=== PATIENT | male | born 1960 | race Caucasian/White ===

== ENCOUNTER 2022-03-14 07:32 | Outpatient (CLI) | payer BC, SELFPAY ==
--- NOTE | ~2022-03-14 | US_ITS ---
EXAMINATION: US scrotum doppler DATE: 03/14/2022 08:45 INDICATION: Right testicular pain TECHNIQUE: Testicular sonogram utilizing grayscale and Doppler COMPARISON: None. FINDINGS: The right testis measures 4.7 x 2.2 x 2.5 cm. The left testis measures 4.0 x 2.8 x 2.0 cm. Symmetric normal grayscale appearance to both testes. There is normal vascular flow to both testes. The right e pididymis is normal with normal vascular flow. 3-4 mm anechoic left epididymal cyst. The left epididy mis is otherwise normal with normal vascular flow. There is no varicocele or hydrocele. IMPRESSION: 1. 3-4 mm left epididymal cyst. Otherwise normal scrotal ultrasound. Reviewed, dictated and finalized at location A.
== END 2022-03-14 07:33 | disposition home or self-care (01) ==
PROVIDERS: PCP Family Medicine; Visit Provider Urology
DX: N50.811 Right testicular pain (principal); N50.3 Cyst of epididymis
CPT/HCPCS: 76870; 93976

== ENCOUNTER 2022-03-24 00:58 | Day surgery (SDC) | payer BC, SELFPAY ==
[2022-03-14 14:43] VITALS: BMI 23.9
--- NOTE | 2022-03-14 14:56 | PC.NURSE ---
Per patient, Ok to get medical hx from due to his work schedule. also verbally verified that mag citrate will not be taken as part of the prep.
[2022-03-24 06:28] VITALS: BP 133/66; PULSE 66; RESP 18; TEMP 36.5; O2SAT 97
[2022-03-24] MEDS: LACTATED RINGERS 1,000 ML 150 ML IV CONT (06:37)
--- NOTE | 2022-03-24 07:22 | WPDANESEPPF ---
Anes - Initial Pre Proc Eval Procedure: Operation Date: 03/24/22 07:30 Proposed Procedures p Screening Colonoscopy - Conor Cardenas MD Date/Time: 03/24/22 07:22 Surgeon: Conor Cardenas MD Pre Op Diagnosis: neoplasm screening Patient Data Age: 61 Gender: M Height: 1.75 m Weight: 70.4 kg Last Vital Signs Temp 97.7 F 03/24/22 06:28 Pulse 66 03/24/22 06:28 Resp 18 03/24/22 06:28 BP 133/66 03/24/22 06:28 Pulse Ox 97 03/24/22 06:28 O2 Del Method Room Air 03/24/22 06:28 Allergies Allergy/AdvReac Type Severity Reaction Status Date / Time No Known Allergies Allergy Verified 03/24/22 06:26 Home Medications Medication Instructions Recorded Confirmed Type atorvastatin 20 mg tablet 20 mg PO DAILY #90 tabs 04/22/21 03/14/22 Rx lisinopril 20 mg tablet 20 mg PO DAILY #90 tabs 04/22/21 03/14/22 Rx omeprazole 20 mg tablet,delayed 20 mg PO DAILY #90 tabs 04/22/21 03/14/22 Rx release sildenafil 100 mg tablet (Viagra) 100 mg PO DAILY PRN sexual 02/07/22 03/14/22 Rx activity #10 tabs valacyclovir 500 mg tablet 500 mg PO DAILY #90 tabs 02/22/22 03/14/22 Rx Patient hx anesthesia problems: none Family hx anesthesia problems: none Results Review: All pre-operative results and documents have been reviewed as part of the pre-operative evaluation. [facility] Past Medical History Medical History Benign prostatic hyperplasia Erectile dysfunction Essential hypertension Gastroesophageal reflux disease Genital HSV Injury of triceps Mixed hyperlipidemia Total bilirubin, elevated Surgical History Surgical History History of bilateral knee replacement Hx of tonsillectomy Family History Family History (Updated 02/07/22 @ 15:48 by Lisa Manzo CMA) Sibling Diabetes mellitus Father Hypertension Malignant neoplasm of prostate Grandparent Acute myocardial infarction Grandparent Cerebrovascular accident Social History Social History (Updated 02/07/22 @ 15:48 by Lisa Manzo [facility] Smoking status: Never smoker Alcohol intake: never Substance use: never Substance use type: does not use Living arrangements: alone Anes - Eval Final PreProcedure Day of Procedure 03/24/22 07:22 Patient weight: normal Heart: regular rate and rhythm Lungs: clear to auscultation Airway: Mallampati scale class II Neurological: alert and oriented Last oral intake: >/= 8 hours ASA classification: II Emergent: no Anesthetic plan: proceed Anesthesia type and monitoring: general GIVS and standard monitoring Results Review: All pre-operative results and documents have been reviewed as part of the pre-operative evaluation. Informed Consent: The patient's anesthetic plan and its attendant risks and benefits were discussed with the patient/family/POA. Questions were solicited and answers provided to the satisfaction of the patient/family/POA.
--- NOTE | 2022-03-24 07:23 | PM.IMHP ---
H&P: HPI History of Present Illness Date/Time: 03/24/22 07:23 Chief Complaint: Neoplasia screening. Narrative: This is a 61-year-old white male patient presents for screening colonoscopy. Patient reports his current weight appetite and bowel movements are normal. Patient denies abdominal pain. He has had no bleeding. Family history is noncontributory. Has been 12 years since last colonoscopy. Patient presents today for screening colonoscopy. Review of Systems Review of Systems: Review of systems noncontributory. [facility] Past Medical History Medical History Benign prostatic hyperplasia Erectile dysfunction Essential hypertension Gastroesophageal reflux disease Genital HSV Injury of triceps Mixed hyperlipidemia Total bilirubin, elevated Surgical History Surgical History History of bilateral knee replacement Hx of tonsillectomy Family History Family History (Updated 02/07/22 @ 15:48 by Lisa Manzo CMA) Sibling Diabetes mellitus Father Hypertension Malignant neoplasm of prostate Grandparent Acute myocardial infarction Grandparent Cerebrovascular accident Social History Social History (Updated 02/07/22 @ 15:48 by Lisa Manzo CMA) Smoking status: Never smoker Alcohol intake: never Substance use: never Substance use type: does not use Living arrangements: alone Meds Home Medications and Allergies Home Medications Medication Instructions Recorded Confirmed Type atorvastatin 20 mg tablet 20 mg PO DAILY #90 tabs 04/22/21 03/14/22 Rx lisinopril 20 mg tablet 20 mg PO DAILY #90 tabs 04/22/21 03/14/22 Rx omeprazole 20 mg tablet,delayed 20 mg PO DAILY #90 tabs 04/22/21 03/14/22 Rx release sildenafil 100 mg tablet (Viagra) 100 mg PO DAILY PRN sexual 02/07/22 03/14/22 Rx activity #10 tabs valacyclovir 500 mg tablet 500 mg PO DAILY #90 tabs 02/22/22 03/14/22 Rx Allergies Allergy/AdvReac Type Severity Reaction Status Date / Time No Known Allergies Allergy Verified 03/24/22 06:26 Vital Signs Vital Signs - 24 hr 03/24/22 06:28 Temperature 97.7 F Pulse Rate 66 Respiratory Rate 18 Blood Pressure 133/66 Pulse Oximetry 97 Oxygen Delivery Room Air Exam Narrative: Physical exam reveals patient be alert. Vital signs stable. HEENT exam is unremarkable. Patient is anicteric. Lungs are clear to auscultation and percussion. Heart is without murmur or extra sounds. Abdominal exam bowel sounds are present soft nontender with no organomegaly. Digital external rectal exam is normal. Assessment and Plan Assessment and plan (1) Encounter for screening colonoscopy: Code(s): Z12.11 - Encounter for screening for malignant neoplasm of colon Status: Acute Assessment and Plan: Patient presents today for screening colonoscopy. He appears to be at average risk for colon polyps. Further recommendations may be given after endoscopy.
[2022-03-24] MEDS: SIMETHICONE ORAL SUSPENSION 20 MG/0.3 ML 30 ML BOTTLE 0.6 ML IRRIGATION (07:35)
[2022-03-24 07:49] VITALS: BP 85/48; PULSE 60; RESP 17; O2SAT 98
[2022-03-24 07:59] VITALS: BP 123/71; PULSE 65; RESP 23; O2SAT 99
[2022-03-24 08:09] VITALS: BP 116/68; PULSE 55; RESP 13; O2SAT 98
== END 2022-03-24 08:17 | disposition home or self-care (01) ==
PROVIDERS: PCP Family Medicine; Visit Provider Internal Medicine Gastroenterology
PROC: 0DJD8ZZ Inspection of Lower Intestinal Tract, Via Natural or Artificial Opening Endoscopic (ICD-10-PCS; CPT 45378; principal; 2022-03-24 07:30)
DX: Z12.11 Encounter for screening for malignant neoplasm of colon (principal); K62.1 Rectal polyp; I10 Essential (primary) hypertension; E78.2 Mixed hyperlipidemia; N40.0 Benign prostatic hyperplasia without lower urinary tract symptoms; B00.9 Herpesviral infection, unspecified; K21.9 Gastro-esophageal reflux disease without esophagitis
CPT/HCPCS: 45385; 88305; J2704; J7120

== ENCOUNTER 2024-04-10 12:51 | Outpatient (CLI) | payer BC, SELFPAY ==
--- NOTE | ~2024-04-10 | US_ITS ---
EXAMINATION: US renal BI DATE: 04/10/2024 13:30 INDICATION: Abnormal result of kidney function tests TECHNIQUE: Multiple ultrasound grayscale images of the kidneys were obtained. COMPARISON: None. FINDINGS: The right kidney measures 9.4 x 4.7 x 4.9 cm. The left kidney measures 11.2 x 5.8 x 5.0 cm. The kidne ys demonstrate normal echogenicity. 2.2 similar anechoic exophytic cyst at the lower pole of the left kidney. There is no hydronephrosis in either kidney. No stones identified. The bladder is normal wi th bilateral ureteral jets visualized on color Doppler. IMPRESSION: 1. 2.2 cm left renal cyst. Otherwise normal kidneys with no hydronephrosis. Reviewed, dictated and finalized at location B.
== END 2024-04-10 12:52 | disposition home or self-care (01) ==
PROVIDERS: PCP Family Medicine; Visit Provider Student in an Organized Health Care Education/Training Program
DX: R94.4 Abnormal results of kidney function studies (principal); N28.1 Cyst of kidney, acquired
CPT/HCPCS: 76775

== ENCOUNTER 2024-08-20 16:21 | Outpatient (CLI) | payer BC, SELFPAY ==
--- OUTSIDE RECORDS SUMMARY | 2024-08-20 16:23 | XMS_ITS | Continuity of Care Document ---
Author Organization [facility] Address [id number] [place] [address] [address] [place] [address] Phone Care Team Providers Care Applications Engineer Name Role Phone Ailyn Ashby Unavailable Unavailable Advance Directives Directive Yes / No Effective Date File Name No Information Encounters Encounter Description Practice Location Reason(s) For Visit Diagnoses Date Provider Providers Copied on Encounter [facility], [address], [place], [place], [id number], [place] tel:[phone] [facility] No Information Nov-0 2-200 0 Symone Robertson. [address] , [address], [place], [address], [place]. tel:[phone] Family History Family Member Type Diagnosis Age At Onset No Information Payers Payer name Insurance type Covered green party ID Authoriza tion(s) No Information Social History Type Description Quantity Date Captured Comments Sex Male Smoking Status No Information Chief Complaint And Reason For Visit No Information Reason For Referral Reason For Referral No Information History Of Present Illness Encounter Date Complaint History Of Prese nt Illness No Information Functional Status Date Functional Assessmen t No Information Instructions Date Instruction Additional Infor mation No Information Assessments Type Assessment Date No Information Patient Care Teams Name Effective Dates (start - stop) Status Members No Information
[2024-08-20 16:38] LABS: Hematocrit 40.2 % (42.0-52.0); Hemoglobin 13.3 g/dL (14.0-18.0); Mean Corpuscular HGB Conc 33.1 g/dl (32-36); Mean Corpuscular Hemoglobin 29.9 pg (26-34); Mean Corpuscular Volume 90.3 fl (80-100); Platelet Count Result 321 k/mm3 (150-375); Red Blood Count 4.45 M/mm3 (4.6-6.20); Red Cell Distribution Width 12.2 % (11.5-14.5); White Blood Count 6.7 K/mm3 (4.5-10.0)
[2024-08-20 16:57] LABS: Alanine Aminotransferase 38 U/L (6-50); Albumin Level 4.2 g/dL (3.5-5.1); Alkaline Phosphatase 54 U/L (38-126); Anion Gap 6 mmol/L (4-12); Aspartate Amino Transferase 31 U/L (17-59); Bilirubin,Total 0.5 mg/dL (0.2-1.3); Blood Urea Nitrogen 28 mg/dL (9-20); Calcium 9.2 mg/dL (8.4-10.2); Carbon Dioxide 31 mmol/L (22-30); Chloride 102 mmol/L (98-107); Estimated Glomerular Filt Rate > 60; Glucose 102 mg/dL (65-110); Potassium 4.1 mmol/L (3.4-5.0); Sodium 139 mmol/L (137-145)
== END 2024-08-20 16:22 | disposition home or self-care (01) ==
LOC: ANHLAB 16:22
PROVIDERS: PCP Family Medicine; Visit Provider Family Medicine
DX: Z01.818 Encounter for other preprocedural examination (principal); Z86.2 Personal history of diseases of the blood and blood-forming organs and certain disorders involving the immune mechanism; I10 Essential (primary) hypertension
CPT/HCPCS: 36415; 80053; 85027

== ENCOUNTER 2024-08-21 07:01 | Outpatient (CLI) | payer BC, SELFPAY ==
--- OUTSIDE RECORDS SUMMARY | 2024-08-21 07:04 | XMS_ITS | Continuity of Care Document ---
Author Organization [facility] Address [address] [place] [address] [address] [place] [address] Phone Care Team Providers Care Radiation Physicist Name Role Phone Ailyn Ashby Unavailable Unavailable Advance Directives Directive Yes / No Effective Date File Name No Information Encounters Encounter Description Practice Location Reason(s) For Visit Diagnoses Date Provider Providers Copied on Encounter [facility], [address], [place], [place], [id number], [place] tel:[phone] [facility] No Information Nov-0 2-200 0 Symone Robertson. [address] , [address], [place], [address], [place]. tel:[phone] Family History Family Member Type Diagnosis Age At Onset No Information Payers Payer name Insurance type Covered constitution party ID Authoriza tion(s) No Information Social [...]
--- NOTE | 2024-08-21 07:32 | ECG_ITS ---
Test Date: 2024-08-21 07:48:23 Measurements Intervals [place] Rate: 55 P: 60 SC: 182 QRS: 8 QRSD: 110 T: 48 QT: 427 QTc: 411 Interpretive Statements SINUS BRADYCARDIA SEPTAL MYOCARDIAL INFARCTION , PROBABLY OLD [40+ ms Q WAVE IN V1/V2] No previous ECG available for comparison Electronically Signed On 08-21-2024 16:03:17 METAL NUMERICAL CONTROL PROGRAMMER by Khari Jones M.D.
== END 2024-08-21 07:02 | disposition home or self-care (01) ==
PROVIDERS: PCP Family Medicine; Visit Provider Family Medicine
DX: R94.31 Abnormal electrocardiogram [ECG] [EKG] (principal); I10 Essential (primary) hypertension
CPT/HCPCS: 93005

== ENCOUNTER 2024-08-28 01:02 | Day surgery (SDC) | payer BC, SELFPAY ==
[2024-08-21 14:23] VITALS: BMI 23.1
--- NOTE | 2024-08-21 14:38 | PC.NURSE ---
Report to the Outpatient Waiting Room, entrance under the green pavilion located off [facility], at time ___8:00AM____ on date __08/28/24 . Planned Procedure Time: __10:00AM____.? Time changes happen often and if your time is changed the preop area will call you the afternoon before. - You and your visitor will be asked to self-screen and do not enter if you have any COVID symptoms. Please call surgeon if you need to reschedule. - A mask is optional within the hospital at this time. Patients may have clear liquids (water, carbonated beverages, clear teas, apple juice) until 3 hours prior to surgery (7:00AM) with a maximum of 20 ounces. - No food from midnight until time of surgery and no smoking. This includes no chewing gum, candy or mints. Take only the following medications with a SIP of water on the morning of surgery: EYE DROPS ONLY DO NOT STOP ANY OF YOUR OTHER PRESCRIPTION MEDICATIONS PRIOR TO SURGERY EXCEPT THE FOLLOWING Medications to discontinue per physician HOLD ALL VITAMINS/SUPPLEMENTS 3 DAYS PRE-OP PER ANESTHESIA- LAST DOSE 08/24/24. HOLD DICLOFENAC PER DR COHEN. Please no make-up, nail taiwanese, hairspray, perfume, deodorant, or body powder the day of surgery.? No jewelry (including any body piercings) or valuables the day of surgery, leave them at home.? Please take a shower or bath the night before, or the morning of, surgery with an antibacterial soap.? Wear comfortable, loose fitting clothing.? Children are encouraged to wear pajamas. - Jewelry must be removed prior to entering the operating room.? Rings and piercings that are not removed may be cut off. - The hospital will not accept responsibility for valuables.? - Please leave all valuables, including medications, at home the day of surgery. If you are going home after surgery, a licensed cdl truck driver must drive you home.? - NO public transportation without another adult if you receive anesthesia. - We recommend that an adult stay with you for 24 hours following discharge. - We also recommend that you do not drive, make important decision, drink alcoholic beverages, or take any drugs that were not prescribed by your health care provider for at least 24 hours after your discharge time. For Pediatric surgeries, we recommend two adults accompany the child home. Hold all vitamins and supplements for 3 days per anesthesiologist. Follow any additional instructions given to you from your surgeon. Telephone instructions given to ____PATIENT and asked if any additional questions and then verbalized understanding. Patient advised to call surgeon office or pre surgery nurse liaison [phone] if any additional questions.
--- NOTE | 2024-08-27 08:39 | PM.IMHP ---
H&P: HPI History of Present Illness Date/Time: 08/27/24 08:39 Chief Complaint: Patient presents with a triceps tear on the left. He has previously torn his right 1. The tendon is retracted several centimeters. This occurred about a month ago. He would like to consider surgical intervention attempted repair. Review of Systems Musculoskeletal: Musculoskeletal: Reports arthralgias, Reports joint swelling and Reports stiffness [facility] Past Medical History Medical History Triceps tendon rupture Total bilirubin, elevated Genital HSV Injury of triceps Benign prostatic hyperplasia Erectile dysfunction Gastroesophageal reflux disease Mixed hyperlipidemia Essential hypertension Surgical History Surgical History Hx of tonsillectomy History of bilateral knee replacement Family History Family History Sibling Diabetes mellitus Father Hypertension Malignant neoplasm of prostate Grandparent Acute myocardial infarction Cerebrovascular accident Mother No problems noted. Social History Social History Smoking status: Never smoker Second hand tobacco smoke exposure: No Alcohol intake: never Substance use: never Substance use type: does not use Do You Feel Safe in your Home?: Yes Lack of Transportation: No Lack of Food: Never True Current Housing: I Have Housing Concerned About Future Housing: No Difficulty Paying Gas/Electric Bills: No Difficulty Paying for Meds: No Currently Unemployed: No Education: Trade/Vocational Certificate Difficulty w/ Childcare or Family Care: No Living arrangements: with family Additional living arrangements comments: S.O. Occupation/Education: occupation Additional occupation/education comments: [employer] Gender identity (if verbalized by the patient): Male Sexual Orientation (if Verbalized by the Patient): Straight or Heterosexual Spiritual care concerns: No Agree to blood products: Yes Meds Home Medications and Allergies Home Medications ?Medication ?Instructions ?Recorded ?Confirmed ?Type lisinopril 20 mg tablet 20 mg PO DAILY #90 tabs 02/28/24 08/21/24 Rx omeprazole 20 mg tablet,delayed 20 mg PO DAILY #90 tabs 02/28/24 08/21/24 Rx release sildenafil 100 mg tablet (Viagra) 100 mg PO DAILY PRN sexual 03/01/24 08/21/24 Rx activity #10 tabs valacyclovir 500 mg tablet 500 mg PO DAILY #90 tabs 06/06/24 08/21/24 Rx atorvastatin 20 mg tablet 20 mg PO DAILY 08/21/24 08/21/24 History diclofenac sodium 75 mg 75 mg PO Q12H PRN pain 08/21/24 08/21/24 History tablet,delayed release lifitegrast 5 % eye drops in a 1 drp EACH EYE Q12H 08/21/24 08/21/24 History dropperette (Xiidra) multivitamin (Daily Multi-Vitamin 1 tablet PO DAILY 08/21/24 08/21/24 History tablet) vitamin E 670 mg (1,000 unit) 670 mg PO DAILY 08/21/24 08/21/24 History capsule Allergies Allergy/AdvReac Type Severity Reaction Status Date / Time No Known Allergies Allergy Verified 08/23/24 12:53 Exam Narrative: Patient has weakness in extension. He has a palpable defect with the triceps tendon lies. Neurologically appears to be grossly intact. He has pain with manipulation. Radiology Reports: Comments: [phone] Magnetic Resonance Report Signed Patient: Ru Agosto EXAMINATION: MR elbow LT wo con DATE: 08/15/2024 08:20 INDICATION: Medial epicondylitis at the left elbow and left elbow pain post fall 3 weeks prior TECHNIQUE: Magnetic resonance imaging (MRI) of the left elbow was performed without intravenous contrast. Sequences included coronal, axial, and sagittal PD-weighted FS FSE and coronal, axial, and sagittal PD-weighted FSE. COMPARISON: None FINDINGS: Osseous/other: Normal alignment. Normal marrow signal with no marrow edema, fracture, osteochondral lesion or pathologic marrow replacing process. Tendons: The biceps brachii and brachialis tendons are normal. Mild increased signal consistent with mild tendinopathy without discrete tear at the medial and lateral epicondylar origins of the common flexor and extensor tendon wads respectively. Avulsion and 3 cm proximal retraction of the central component of the triceps tendon associated the long and lateral heads of the triceps muscle. Partial tear of the deeper medial head component of the tendon. The lateral expansion of the tendon remains intact. Along the retracted tear margin is involved enthesophyte fracture fragment which is better appreciated on the prior radiographs. Ligaments: The medial and lateral collateral ligament complexes are normal. Cubital tunnel: Cubital tunnel is unremarkable with normal signal and caliber of the ulnar nerve. Fluid: Physiologic amount of fluid the elbow joint. IMPRESSION: 1. Avulsion and 3 cm proximal retraction of the majority the distal triceps tendon from its olecranon insertion along with associated avulsion fracture of an olecranon enthesophyte. 2. Mild tendinopathy without discrete tears at the medial and lateral epicondylar origins of both common flexor and extensor tendon wad respectively. Reviewed, dictated and finalized at location A. Electronically signed by Sonny Bell Elbow X-Ray 08/01/24 Elbow MRI 08/15/24 Knee X-Ray 11/16/23 Orthopedics Result Report 08/01/24 Assessment and Plan Assessment and plan (1) Traumatic rupture of left triceps tendon: Code(s): S46.312A - Strain of muscle, fascia and tendon of triceps, left arm, initial encounter Status: Acute Assessment and Plan: Patient has a triceps tear in the left. He is weak in extension. He has pain with manipulation. I have discussed treatment options with him at length. Risks, benefits, limitations and alternatives. He would like to proceed with the attempted repair of the rupture triceps tendon. Will proceed per his request.
[2024-08-28] VITALS (9 sets, daily range): BP systolic 115–146; BP diastolic 51–78; PULSE 56–63; RESP 13–20; TEMP 35.9–36.1; O2SAT 98–100
--- NOTE | ~2024-08-28 | XR_ITS ---
EXAMINATION: XR surgery orthopedic DATE: 08/28/2024 10:40 INDICATION: Intraoperative evaluation during left elbow triceps tendon repair TECHNIQUE: Lateral view of the left elbow was obtained. COMPARISON: 08/11/2024 FINDINGS: There is a suture anchor at the proximal tip of the lacrimal gland consistent with reported triceps t endon repair. Decreased degree of distal distraction of an avulsed enthesophyte. Position close to th e olecranon. Bone alignment otherwise normal. No new fractures identified. Joint spaces appear normal with no joint effusion. IMPRESSION: 1. Postoperative changes consistent with reported repair of a distal triceps tendon tear with placeme nt of a suture anchor at the tip of the olecranon. See procedure note for further detail. Reviewed, dictated and finalized at location A. MECHANIC IMPRESSION: 1. Postoperative changes consistent with reported repair of a distal triceps te ndon tear with placement of a suture anchor at the tip of the olecranon. See pr ocedure note for further detail.
--- OUTSIDE RECORDS SUMMARY | 2024-08-28 01:05 | XMS_ITS | Continuity of Care Document ---
Author Organization [facility] Address [address] [place] [address] [address] [place] [address] Phone Care Team Providers Care Time Study Analyst Name Role Phone Ailyn Ashby Unavailable Unavailable Advance Directives Directive Yes / No Effective Date File Name No Information Encounters Encounter Description Practice Location Reason(s) For Visit Diagnoses Date Provider Providers Copied on Encounter [facility], [address], [place], [place], [id number], [place] tel:[phone] [facility] No Information Nov-0 2-200 0 Symone Robertson. [address] , [address], [place], [address], [place]. tel:[phone] Family History Family Member Type Diagnosis Age [...]
--- NOTE | 2024-08-28 08:26 | WPDANESEPP ---
Anes - Eval Pre Procedure Procedure: Operation Date: 08/28/24 10:00 Proposed Procedures p Left Triceps Tendon Rupture Repair - Chong Oseguera MD Date/Time: 08/28/24 08:26 Surgeon: Oumar Pre Op Diagnosis: left triceps rupture Patient Data Age: 64 Gender: M Height: 1.75 m Weight: 71 kg Allergies Allergy/AdvReac Type Severity Reaction Status Date / Time No Known Allergies Allergy Verified 08/27/24 13:00 Home Medications ?Medication ?Instructions ?Recorded ?Confirmed ?Type lisinopril 20 mg tablet 20 mg PO DAILY #90 tabs 02/28/24 08/27/24 Rx omeprazole 20 mg tablet,delayed 20 mg PO DAILY #90 tabs 02/28/24 08/27/24 Rx release sildenafil 100 mg tablet (Viagra) 100 mg PO DAILY PRN sexual 03/01/24 08/27/24 Rx activity #10 tabs valacyclovir 500 mg tablet 500 mg PO DAILY #90 tabs 06/06/24 08/27/24 Rx atorvastatin 20 mg tablet 20 mg PO DAILY 08/21/24 08/27/24 History diclofenac sodium 75 mg 75 mg PO Q12H PRN pain 08/21/24 08/27/24 History tablet,delayed release lifitegrast 5 % eye drops in a 1 drp EACH EYE Q12H 08/21/24 08/27/24 History dropperette (Xiidra) multivitamin (Daily Multi-Vitamin 1 tablet PO DAILY 08/21/24 08/27/24 History tablet) vitamin E 670 mg (1,000 unit) 670 mg PO DAILY 08/21/24 08/27/24 History capsule ECG: SB, rate 55 Other studies: medical clearance from Dr. Ulloa, Cardiac clearance (low surgical risk) Dr. Valentin Patient hx anesthesia problems: none (pt states slow to awaken after knee surgery. no prolonged intubation or ventilatory support noted) Family hx anesthesia problems: none Results Review: All pre-operative results and documents have been reviewed as part of the pre-operative evaluation. [facility] Past Medical History Medical History Triceps tendon rupture Total bilirubin, elevated Genital HSV Injury of triceps Benign prostatic hyperplasia Erectile dysfunction Gastroesophageal reflux disease Mixed hyperlipidemia Essential hypertension Surgical History Surgical History Hx of tonsillectomy History of bilateral knee replacement Family History Family History Sibling Diabetes mellitus Father Hypertension Malignant neoplasm of prostate Grandparent Acute myocardial infarction Cerebrovascular accident Mother No problems noted. Social History Social History Smoking status: Never smoker Second hand tobacco smoke exposure: No Alcohol intake: never Substance use: never Substance use type: does not use Do You Feel Safe in your Home?: Yes Lack of Transportation: No Lack of Food: Never True Current Housing: I Have Housing Concerned About Future Housing: No Difficulty Paying Gas/Electric Bills: No Difficulty Paying for Meds: No Currently Unemployed: No Education: Trade/Vocational Certificate Difficulty w/ Childcare or Family Care: No Living arrangements: alone Additional living arrangements comments: S.O. 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
--- NOTE | 2024-08-28 09:14 | WPDHPUPDATE1 ---
History and Physical Update Update Date/Time: 08/28/24 09:14 History and Physical has been reviewed, including an updated exam of the patient. There are NO changes in the patient's condition. Risks, benefits, and alternatives have been discussed and questions answered. Patient agrees to proceed with procedure.
[2024-08-28] MEDS: ACETAMINOPHEN 500 MG TABLET 1000 MG PO (09:19)
[2024-08-28] MEDS: LACTATED RINGERS 1,000 ML 30 ML IV CONT (09:20)
[2024-08-28] MEDS: KETOROLAC 15 MG/ML VIAL (*BKC) IV PUSH (09:25)
--- NOTE | 2024-08-28 09:42 | P.PNAN_ITS ---
Anes - Initial Pre Proc Eval Procedure: Operation Date: 08/28/24 10:00 Proposed Procedures p Left Triceps Tendon Rupture Repair - Chong Oseguera MD Date/Time: 08/28/24 09:42 Surgeon: Chong Oseguera MD Pre Op Diagnosis: left triceps rupture Patient Data Age: 64 Gender: M Height: 1.75 m Weight: 71 kg Allergies Allergy/AdvReac Type Severity Reaction Status Date / Time No Known Allergies Allergy Verified 08/28/24 08:44 Home Medications ?Medication ?Instructions ?Recorded ?Confirmed ?Type lisinopril 20 mg tablet 20 mg PO DAILY #90 tabs 02/28/24 08/28/24 Rx omeprazole 20 mg tablet,delayed 20 mg PO DAILY #90 tabs 02/28/24 08/28/24 Rx release sildenafil 100 mg tablet (Viagra) 100 mg PO DAILY PRN sexual 03/01/24 08/27/24 Rx activity #10 tabs valacyclovir 500 mg tablet 500 mg PO DAILY #90 tabs 06/06/24 08/28/24 Rx atorvastatin 20 mg tablet 20 mg PO DAILY 08/21/24 08/28/24 History diclofenac sodium 75 mg 75 mg PO Q12H PRN pain 08/21/24 08/28/24 History tablet,delayed release lifitegrast 5 % eye drops in a 1 drp EACH EYE Q12H 08/21/24 08/28/24 History dropperette (Xiidra) multivitamin (Daily Multi-Vitamin 1 tablet PO DAILY 08/21/24 08/28/24 History tablet) vitamin E 670 mg (1,000 unit) 670 mg PO DAILY 08/21/24 08/28/24 History capsule Patient hx anesthesia problems: none (pt states slow to awaken after knee surgery. no prolonged intubation or ventilatory support noted) Family hx anesthesia problems: none Results Review: All pre-operative results and documents have been reviewed as part of the pre- operative evaluation. [facility] Past Medical History Medical History Triceps tendon rupture Total bilirubin, elevated Genital HSV Injury of triceps Benign prostatic hyperplasia Erectile dysfunction Gastroesophageal reflux disease Mixed hyperlipidemia Essential hypertension Surgical History Surgical History Hx of tonsillectomy History of bilateral knee replacement Family History Family History Sibling Diabetes mellitus Father Hypertension Malignant neoplasm of prostate Grandparent Acute myocardial infarction Cerebrovascular accident Mother No problems noted. Social History Social History Smoking status: Never smoker Second hand tobacco smoke exposure: No Alcohol intake: never Substance use: never Substance use type: does not use Do You Feel Safe in your Home?: Yes Lack of Transportation: No Lack of Food: Never True Current Housing: I Have Housing Concerned About Future Housing: No Difficulty Paying Gas/Electric Bills: No Difficulty Paying for Meds: No Currently Unemployed: No Education: Trade/Vocational Certificate Difficulty w/ Childcare or Family Care: No Living arrangements: alone Additional living arrangements comments: S.O. 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[employer] Gender identity (if verbalized by the patient): Male Sexual Orientation (if Verbalized by the Patient): Straight or Heterosexual Spiritual care concerns: No Agree to blood products: Yes Anes - Eval Final PreProcedure Day of Procedure 08/28/24 09:42 Patient weight: normal Heart: regular rate and rhythm Lungs: clear to auscultation Airway: Mallampati scale class II Neurological: alert and oriented Last oral intake: >/= 8 hours ASA classification: III Emergent: no Anesthetic plan: proceed Anesthesia type and monitoring: general LMA and standard monitoring Results Review: All pre-operative results and documents have been reviewed as part of the pre- operative evaluation. Informed Consent: The patient's anesthetic plan and its attendant risks and benefits were discussed with the patient/family/POA. Questions were solicited and answers provided to the satisfaction of the patient/family/POA.
[2024-08-28] MEDS: ceFAZolin 2 GM/D5W 50 ML 2 GM/50 ML BAG IVPB (10:00)
--- NOTE | 2024-08-28 10:39 | P.OP_ITS ---
Procedure Note - Detailed Date of Procedure 08/28/24 Pre-op Diagnosis LEFT triceps rupture Post-op Diagnosis Same Procedure Performed Repair triceps rupture Surgeon Chong Oseguera MD Anesthesia General Indications Ruptured tendon, inability to straighten arm with power Findings Ruptured triceps tendon Description of Procedure Patient brought to operating room 7. General anesthetic was administered. He was sterilely prepped and draped in usual manner. His arm was brought up above his chest. And a longitudinal incision made over the elbow. Dissection carried down to the fascia. The ruptured tendon was identified noted to be retracted 3 to 4 centimeters. This is freed and pulled back into place. A Mitek Super [place] was used to repair the tendon to the bone. The area around the bone was gently roughened. This was reinforced with #2 Ethibond sutures. At this point, good and stable fixation was achieved. The wound was closed with 2-0 Vicryl and glue. Sterile dressing applied. Implants MITEK super anchor Estimated Blood Loss 20 Complications No immediate complications Condition Stable Disposition PACU [facility] Billing Surgery - Charge Forward: Surgery Billing (01872? Tendon Repair to Bone)
[2024-08-28] MEDS: oxyCODONE HCL (*CRX) 5 MG TAB IR PO (12:00)
== END 2024-08-28 13:00 | disposition home or self-care (01) ==
PROVIDERS: PCP Family Medicine; Visit Provider Orthopaedic Surgery
PROC: (CPT 24341; principal; 2024-08-28 10:00)
DX: S46.312A Strain of muscle, fascia and tendon of triceps, left arm, initial encounter (principal); X58.XXXA Exposure to other specified factors, initial encounter
CPT/HCPCS: 24342; 99199; A4565; A9270; C1713; J0690; J1100; J1885; J2250; J2405; J2704; J3010; J7120